=== PATIENT | female | born 1980 | race Caucasian/White ===

== ENCOUNTER 2016-09-10 20:18 | Emergency (ER) | payer OTHER ==
[~2016-09-10] VITALS: Ht 152.4 cm; Wt 47.2 kg
[2016-09-10] MEDS ORDERED: LIDOCAINE 2% MDV 20 ML VIAL SC ONE (20:45)
[2016-09-10] MEDS ORDERED: PERCOCET 5MG/325MG TAB PO ONE ×2 (20:45→23:30)
[2016-09-10] MEDS ORDERED: cefTRIAXone SOD 1 GM in D5W MINI-BAG PLUS 50 ML IV ONE (22:00)
[2016-09-10] MEDS ORDERED: TETANUS/DIPHTHERIA TOX ADSORB ADULT 0.5ML SYR/VIAL (90714) IM ONE (22:00)
[2016-09-10] MEDS ORDERED: ADACEL/BOOSTRIX VACCINE (DIPHTH/PERTUSS/ACELL/TETANUS)0.5ML SYR (90715) IM ONE (22:15)
[2016-09-10] MEDS ORDERED: PERC5TAB6 PO ×2 (23:28→23:41)
[2016-09-10] MEDS ORDERED: AUGM875T27 PO (23:29)
[2016-09-10 23:59] VITALS: BP 134/72
--- NOTE | 2016-09-11 09:16 | REP ---
Left hand series: Four views. History: Dog bite injury. Findings: There is a chip fracture along the ulnar and volar aspect of the distal end of the third metacarpal at the MCP joint. This is somewhat displaced. There is adjacent soft tissue swelling and a multiple foci of subcutaneous emphysema are seen in this region extending into the soft tissues adjacent the proximal phalanx of the long finger. There is some soft tissue emphysema and irregularity dorsally over the metacarpals and in the thenar soft tissues as well as a soft tissue irregularity and emphysema adjacent to the radial aspect of the carpus. No other fracture is seen. Impression: Open chip fracture distal end third metacarpal at the MCP joint. Soft tissue emphysema and soft tissue irregularity consistent with lacerations. Signed by Major Ellsworth MD 09/11/2016 09:39 A
== END 2016-09-11 00:01 | disposition home or self-care (01) ==
LOC: M ED 21:35
DX: S61.452A Open bite of left hand, initial encounter (principal); W54.0XXA Bitten by dog, initial encounter; Y92.89 Other specified places as the place of occurrence of the external cause; Y93.89 Activity, other specified; Y99.9 Unspecified external cause status
CPT/HCPCS: 12034; 73130; 90715; 96360; 96372; 99284; J0696

== ENCOUNTER 2016-12-07 11:39 | Outpatient (RCR) | payer OTHER ==
[~2016-12-07 11:39] MED LIST: AUGM875T28 PO; PERC5TAB12 PO
== END 2016-12-24 ==
LOC: M OT 11:39
PROVIDERS: ATTEND Physician Assistant Surgical
DX: Z51.89 Encounter for other specified aftercare (principal); S62.355D Nondisplaced fracture of shaft of fourth metacarpal bone, left hand, subsequent encounter for fracture with routine healing; S61.002D Unspecified open wound of left thumb without damage to nail, subsequent encounter

== ENCOUNTER 2020-11-11 06:31 | Emergency (ER) | payer OTHER ==
[~2020-11-11] VITALS: Ht 152.4 cm; Wt 71.5 kg
[2020-11-11] MEDS ORDERED: KETOROLAC 60MG 2ML VIAL IM ONE (08:10)
--- NOTE | 2020-11-11 08:28 | REP ---
INDICATION: trauma w/ bruising 1 month ago COMPARISON: None. TECHNIQUE: AP and lateral views of the sacrum and coccyx (3 total views). FINDINGS: No evidence for acute fracture or dislocation/subluxation. Osseous structures and surrounding soft tissues are normal. IMPRESSION: Normal appearance of the sacrum and coccyx.. No acute fracture or dislocation. <Electronically signed by Enrico Rodriguez > 11/11/20 [id number]
[2020-11-11] MEDS ORDERED: METH-1165 PO (09:03)
[2020-11-11] MEDS ORDERED: NAPR-837 PO (09:03)
[2020-11-11 09:17] VITALS: BP 117/68
== END 2020-11-11 09:20 | disposition home or self-care (01) ==
LOC: M ED 06:31
DX: M54.41 Lumbago with sciatica, right side (principal); R56.9 Unspecified convulsions; J45.909 Unspecified asthma, uncomplicated; E03.9 Hypothyroidism, unspecified
CPT/HCPCS: 72220; 96372; 99283; J1885

== ENCOUNTER 2021-02-28 09:48 | Emergency (ER) | payer OTHER ==
[~2021-02-28] VITALS: Ht 147.3 cm; Wt 68.6 kg
[2021-02-28 09:48] VITALS: BP 140/79
[~2021-02-28 09:48] MED LIST changes: +METH-1165 PO; +NAPR-837 PO
[2021-02-28 11:56] LABS: BASO % 0.5 % (0.0-1.0); EOS # 0.2 10^3/uL (0.0-0.5); EOS % 2.3 % (0.0-3.0); HEMATOCRIT 41.7 % (36.0-47.0); HEMOGLOBIN 14.6 g/dl (12.0-15.5); LYMPH # 2.1 10^3/uL (1.5-5.0); LYMPH % 28.6 % (24.0-44.0); MEAN CORPUSCULAR HEMOGLOBIN 32.5 pg (27.0-33.0); MEAN CORPUSCULAR VOLUME 92.9 fl (80.0-96.0); MONO # 0.6 10^3/uL (0.0-0.8); MONO % 8.4 % (2.0-8.0); NEUTROPHILS # 4.5 10^3/uL (1.5-8.5); NEUTROPHILS % 60.1 % (36.0-66.0); PLATELET COUNT, AUTOMATED 270 10^3/uL (150-450); RED BLOOD COUNT 4.49 10^6/uL (4.00-5.40); WHITE BLOOD COUNT 7.4 10^3/uL (4.0-10.0)
[2021-02-28 12:22] LABS: ALT/SGPT 32 U/L (12-78); BILIRUBIN,DIRECT < 0.1 MG/DL (0.0-0.2); BILIRUBIN,TOTAL 0.5 MG/DL (0.2-1.0); TOTAL PROTEIN 7.6 GM/DL (6.4-8.2)
[2021-02-28] MEDS ORDERED: BACT800T5 PO ×2 (13:01→13:07)
== END 2021-02-28 13:49 | disposition home or self-care (01) ==
LOC: M ED 09:48
DX: S40.869A Insect bite (nonvenomous) of unspecified upper arm, initial encounter (principal); S10.96XA Insect bite of unspecified part of neck, initial encounter; S20.96XA Insect bite (nonvenomous) of unspecified parts of thorax, initial encounter; L29.9 Pruritus, unspecified; L50.9 Urticaria, unspecified; L08.9 Local infection of the skin and subcutaneous tissue, unspecified; W57.XXXA Bitten or stung by nonvenomous insect and other nonvenomous arthropods, initial encounter; Y92.9 Unspecified place or not applicable; Y93.9 Activity, unspecified; Y99.9 Unspecified external cause status; J45.909 Unspecified asthma, uncomplicated; E03.9 Hypothyroidism, unspecified; R56.9 Unspecified convulsions

== ENCOUNTER 2022-11-08 08:19 | Emergency (ER) | payer OTHER ==
[~2022-11-08] VITALS: Ht 152.4 cm; Wt 72.7 kg
[~2022-11-08 08:19] MED LIST changes: +BACT800T5 PO
[2022-11-08 08:20] VITALS: BP 142/99
[2022-11-08] MEDS ORDERED: BENA25CA4 PO (09:13)
[2022-11-08] MEDS ORDERED: PEPC1TAB5 PO (09:32)
[2022-11-08] MEDS ORDERED: PRED20TA PO (09:32)
== END 2022-11-08 09:54 | disposition home or self-care (01) ==
LOC: M ED 08:19
DX: R21 Rash and other nonspecific skin eruption (principal); T78.40XA Allergy, unspecified, initial encounter; J45.909 Unspecified asthma, uncomplicated; R56.9 Unspecified convulsions; Z79.899 Other long term (current) drug therapy

== ENCOUNTER 2023-04-29 07:53 | Emergency (ER) | payer OTHER ==
[~2023-04-29] VITALS: Ht 149.9 cm; Wt 69.8 kg
[~2023-04-29 07:53] MED LIST changes: +BENA25CA4 PO; +PEPC1TAB5 PO; +PRED20TA PO
[2023-04-29] MEDS ORDERED: IBUPROFEN 600MG TAB PO PRN (09:20)
[2023-04-29 10:26] LABS: BASO % 0.4 % (0.0-1.0); EOS # 0.2 10^3/uL (0.0-0.5); EOS % 2.1 % (0.0-3.0); HEMOGLOBIN 14.1 g/dl (12.0-15.5); LYMPH # 1.9 10^3/uL (1.5-5.0); LYMPH % 20.8 % (24.0-44.0); MEAN CORPUSCULAR HEMOGLOBIN 32.3 pg (27.0-33.0); MEAN CORPUSCULAR HGB CONC 34.4 g/dl (32.0-36.5); MEAN CORPUSCULAR VOLUME 93.8 fl (80.0-96.0); MONO # 0.7 10^3/uL (0.0-0.8); MONO % 7.4 % (2.0-8.0); NEUTROPHILS # 6.3 10^3/uL (1.5-8.5); PLATELET COUNT, AUTOMATED 278 10^3/uL (150-450); RED BLOOD COUNT 4.37 10^6/uL (4.00-5.40); WHITE BLOOD COUNT 9.2 10^3/uL (4.0-10.0)
[2023-04-29 10:48] LABS: ALBUMIN 3.8 G/DL (3.2-5.2); ALKALINE PHOSPHATASE 64 U/L (46-116); ALT/SGPT 22 U/L (7.0-40); AST/SGOT 20 U/L (<34); BILIRUBIN,TOTAL 0.5 MG/DL (0.3-1.2); BLOOD UREA NITROGEN 13 MG/DL (9-23); CALCIUM LEVEL 9.2 MG/DL (8.5-10.1); CARBON DIOXIDE LEVEL 27 MMOL/L (20-31); CHLORIDE LEVEL 104 MMOL/L (98-107); CREATININE FOR GFR 0.79 MG/DL (0.55-1.30); GLOMERULAR FILTRATION RATE > 60.0 (>58); GLUCOSE, FASTING 90 MG/DL (60-100); POTASSIUM SERUM 4.1 MMOL/L (3.5-5.1); SODIUM LEVEL 138 MMOL/L (136-145); TOTAL PROTEIN 7.2 G/DL (5.7-8.2)
[2023-04-29 10:50] LABS: ERYTHROCYTE SEDIMENTATION RATE 27 mm/hr (0-20)
[2023-04-29 10:56] LABS: RSV AMPLIFICATION NEGATIVE (NEGATIVE)
[2023-04-29] MEDS ORDERED: ISOVUE-370 76% 100ML VIAL As Ordered ONE (11:02)
[2023-04-29] MEDS ORDERED: SYNT50TA PO (13:00)
[2023-04-29] MEDS ORDERED: AMOX875T2 PO (13:00)
[2023-04-29] MEDS ORDERED: KETO10TAB PO (13:00)
[2023-04-29 14:24] VITALS: BP 125/80; TEMP 97.2; O2SAT 99
== END 2023-04-29 14:25 | disposition home or self-care (01) ==
LOC: M ED 07:53
DX: K02.9 Dental caries, unspecified (principal); K05.10 Chronic gingivitis, plaque induced; K05.319 Chronic periodontitis, localized, unspecified severity; L03.211 Cellulitis of face; K08.89 Other specified disorders of teeth and supporting structures; E03.9 Hypothyroidism, unspecified; J45.909 Unspecified asthma, uncomplicated
CPT/HCPCS: 70491; 80047; 80053; 83735; 84439; 84443; 85025; 85652; 86140; 87040; 87631; 99284; Q9967

== ENCOUNTER → 2023-07-04 | Outpatient (CLI) | payer OTHER ==
[~2023-07-04] MED LIST changes: +AMOX875T2 PO; +KETO10TAB PO; +SYNT50TA PO
== END ==
LOC: M WHC 11:15
PROVIDERS: ATTEND Internal Medicine
DX: Z12.31 Encounter for screening mammogram for malignant neoplasm of breast (principal)